=== PATIENT | female | born 2005 | race African-American/Black ===

== ENCOUNTER 2024-11-08 22:13 | Emergency (ER) | payer BC ==
[~2024-11-08] VITALS: Ht 152.4 cm; Wt 61.2 kg
[2024-11-08 22:13] VITALS: PULSE 92; RESP 18; TEMP 98.8
[2024-11-08] MEDS ORDERED: CORICIDIN HBP1 EAC3 PO (22:48)
[2024-11-08 23:18] VITALS: BP 118/62; PULSE 70; RESP 18; TEMP 98.3; O2SAT 98
== END 2024-11-08 23:00 | disposition home or self-care (01) ==
LOC: FSED 22:18
DX: R05.9 Cough, unspecified (principal); J06.9 Acute upper respiratory infection, unspecified; R09.81 Nasal congestion; Z11.52 Encounter for screening for COVID-19
CPT/HCPCS: 0223U; 83518; 87400; 99283

== ENCOUNTER 2025-01-08 00:13 | Emergency (ER) | payer BC ==
[~2025-01-08] VITALS: Ht 152.4 cm; Wt 67.1 kg
[~2025-01-08 00:13] MED LIST: CORICIDIN HBP1 EAC3 PO
[2025-01-08 00:34] VITALS: PULSE 88; RESP 18; TEMP 98.4
[2025-01-08 01:25] VITALS: BP 131/89; PULSE 88; RESP 18; TEMP 98.4; O2SAT 99
== END 2025-01-08 01:25 | disposition home or self-care (01) ==
LOC: FSED 00:56
DX: R05.9 Cough, unspecified (principal); J06.9 Acute upper respiratory infection, unspecified; R09.89 Other specified symptoms and signs involving the circulatory and respiratory systems; R51.9 Headache, unspecified; Z11.52 Encounter for screening for COVID-19
CPT/HCPCS: 0223U; 87400; 99282